=== PATIENT | female | born 1955 | race Caucasian/White ===

== ENCOUNTER 2016-07-03 16:04 | Emergency (ER) | payer BC ==
[~2016-07-03] VITALS: Ht 162.6 cm; Wt 107.6 kg
[~2016-07-03 16:04] MED LIST: CELEXA20 MG PO; DIOVAN HCT 11 TABLET PO; GEMFIBROZIL600 MG PO; KLONOPIN0.5 M1 PO; LISINOPRIL20 MG PO; NORVASC5 MG PO; PRINIVIL20 MG PO; TOPROL XL25 MG PO
[2016-07-03 17:15] LABS: HEMATOCRIT 35.7 % (36.0-46.0); MCH 31.6 PG (29.0-34.0); MCHC 33.1 G/DL (30.0-36.0); MCV 95.5 FL (83-99); MEAN PLAT.VOLUME 10.3 uM^3 (9.5-12.4); PLATELET COUNT 224 K/uL (156-360); RBC DIS.WIDTH-CV 12.3 % (11.8-14.6); RED BLOOD COUNT 3.74 M/uL (3.80-5.20); WHITE BLOOD COUNT 10.8 K/uL (4.1-10.2)
[2016-07-03 17:19] LABS: ADD MIUA? YES; BILIRUBIN NEGATIVE; BLOOD MODERATE; COLOR STRAW ((YELLOW)); GLUCOSE (STRIP) 50; KETONES NEGATIVE; LEUKOCYTES NEGATIVE; NITRITE NEGATIVE; PROTEIN (STRIP) NEGATIVE; SPECIFIC GRAVITY 1.015 (1.000-1.030); UROBILINOGEN 0.2 MG/DL (0.2-1.0)
[2016-07-03 17:24] LABS: CHLORIDE 107 mEq/L (99-109); POTASSIUM 3.8 mEq/L (3.7-5.4); SODIUM 141 mEq/L (136-147)
[2016-07-03 17:25] LABS: BACTERIA NONE SEEN /HPF; EPITHELIAL CELLS 1+ /HPF; MUCUS TRACE /LPF; RED BLOOD CELLS TNTC /HPF (0-5); UCUL ADDED? NO; WHITE BLOOD CELLS 0-5 /HPF (0-5)
[2016-07-03 17:26] LABS: GLUCOSE 137 mg/dL (70-99)
[2016-07-03 17:27] LABS: ANION GAP 9 MEQ/L (2-14)
[2016-07-03 17:28] LABS: TOTAL BILIRUBIN 0.2 mg/dL (0.0-1.0)
[2016-07-03 17:30] LABS: ALKALINE PHOSPHATASE 94 IU/L (3-129); GFR ESTIMATE (CALCULATED) > 59 mL/min/
[2016-07-03 17:31] LABS: UREA NITROGEN (BUN) 25 mg/dL (9-23)
[2016-07-03 17:33] LABS: LIPASE 78 U/L (1.0-51.0)
[2016-07-03] MEDS ORDERED: PERCOCET 5/31 TABLET PO (18:21)
[2016-07-03] MEDS ORDERED: FLOMAX0.4 MG PO (18:26)
[2016-07-03] MEDS ORDERED: ZOFRAN ODT4 MG PO (18:26)
[2016-07-03 18:36] VITALS: BP 169/91
[2016-07-06] MEDS ORDERED: CELEXA20 MG PO (07:26)
== END 2016-07-03 18:39 | disposition home or self-care (01) ==
LOC: EME 16:04
PROVIDERS: Physician Assistant Medical
DX: N20.0 Calculus of kidney (principal); R31.9 Hematuria, unspecified; E78.5 Hyperlipidemia, unspecified; I10 Essential (primary) hypertension
CPT/HCPCS: 74176; 80053; 81003; 83690; 85027; 99281; 99284; J1885

== ENCOUNTER 2016-07-06 12:27 | Day surgery (SDC) | payer BC ==
[~2016-07-06] VITALS: Ht 162.6 cm; Wt 107.9 kg
[~2016-07-06 12:27] MED LIST changes: +FLOMAX0.4 MG PO; +PERCOCET 5/31 TABLET PO; +ZOFRAN ODT4 MG PO
[2016-07-06 13:14] VITALS: BP 144/83
[2016-07-06 15:38] VITALS: BP 142/75
[2016-07-06 16:16] VITALS: BP 139/66
== END 2016-07-06 16:27 | disposition home or self-care (01) ==
LOC: SDC 12:27
DX: N13.2 Hydronephrosis with renal and ureteral calculous obstruction (principal); I10 Essential (primary) hypertension; F41.8 Other specified anxiety disorders; Z87.891 Personal history of nicotine dependence; Z82.49 Family history of ischemic heart disease and other diseases of the circulatory system
CPT/HCPCS: 74420; C1876; J0330; J0690; J1100; J1580; J2250; J2405; J3010